=== PATIENT | male | born 1985 | race Caucasian/White ===

== ENCOUNTER 2017-01-05 12:53 | Emergency (ER) | payer MEDICAID, OTHER ==
[~2017-01-05] VITALS: Ht 177.8 cm; Wt 93.0 kg
[~2017-01-05 12:53] MED LIST: IBUP800T25 PO; NO CURRENT MEDS
[2017-01-05 12:58] VITALS: Ht 177.8 cm; Wt 93.0 kg
[2017-01-05] MEDS ORDERED: ONDANSETRON (ODT) 4 MG TAB ODT STA (13:25)
[2017-01-05] MEDS ORDERED: DIPHTH/TET/ACEL PERTUSS (ADULT) 0.5 ML VIAL IM ONE (13:30)
[2017-01-05] MEDS ORDERED: HYDROCODONE/APAP (10/325) TAB PO ONE (13:30)
--- NOTE | 2017-01-05 13:46 | ERD ---
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 He was at work and he was using a spinner concrete pipe and pushed on the pedal and accidentally caused a laceration. The nail has been removed as well as the overlying skin. He states that he has localized pain, achy, severe. Denies weakness. Denies paresthesias ROS All systems reviewed and are negative except as per history of present illness. Medications Home Meds Active Scripts Hydrocodone/Acetaminophen ([place]aw 5-325 Tablet) 1 Each Tablet, 1 TAB PO Q6H Y for PAIN, #20 TAB Prov:GRANT ORDOÑEZ PA-C 01/05/17 Sulfamethoxazole/Trimethoprim* (Bactrim Ds* Tablet) 1 Each Tablet, 1 TAB PO BID , #14 TAB Prov:GRANT ORDOÑEZ PA-C 01/05/17 Cephalexin* (Keflex*) 500 Mg Capsule, 500 MG PO QID for 7 Days, CAP Prov:GRANT ORDOÑEZ PA-C 01/05/17 Ibuprofen* (Motrin*) 800 Mg Tab, 800 MG PO Q6, #30 TAB take with food Prov:MARY JAIME PA-C 02/27/16 Reported Medications [No Current Meds] No Conflict Check 08/20/09 Allergies Allergies: Coded Allergies: No Known Allergy (Verified Allergy, Mild, 08/20/09) PMhx/Soc History of Surgery: No Anesthesia Reaction: No Hx Neurological Disorder: No Hx Respiratory Disorders: No Hx Cardiac Disorders: No Hx Psychiatric Problems: No Hx Miscellaneous Medical Probl: No (DENIES MEDICAL AND SURGICAL HX.) Hx Alcohol Use: No Hx Substance Use: No Hx Tobacco Use: No Physical Exam Vitals Vital Signs Date Time Temp Pulse Resp B/P Pulse Ox O2 Delivery O2 Flow Rate FiO2 01/05/17 12:58 97.8 90 18 143/79 99 Physical Exam General: Well-developed, well-nourished. The patient appears in no acute distress. HEENT: Head is normocephalic, atraumatic. No scleral icterus. Neck: Supple. Nontender. Lungs: Clear to auscultation. Normal air movement. Heart: Regular rate and rhythm. S1 and S2 are normal. No murmurs, gallops, or rubs. Abdomen: Nondistended. Extremities: Left second index finger has a laceration that extends to the fingertip, it is through and through, the nailbed is missing there is a circular area of skin that is missing at the top of the digit approximately 1.5 cm, laceration extends approximately 4 cm. He is able to flex and extend at the DIP, PIP and MCP joint. Capillary refill less than 2 seconds. Mild bleeding, nonpulsatile Neurologic: Alert and oriented 3. No focal deficits. Normal speech and gait. Skin: Normal turgor. No rash or lesions. Results 24 hrs Current Medications Medications (Trade) Dose Ordered Sig/Brianna Route PRN Reason Start Time Stop Time Status Last Admin Dose Admin Diphtheria/ Tetanus/Acell Pertussis (Adacel) 0.5 ml ONCE ONCE IM 01/05/17 13:30 01/05/17 13:31 DC 01/05/17 14:07 Acetaminophen/ Hydrocodone Bitart ([place] (10/325)) 1 tab ONCE ONCE PO 01/05/17 13:30 01/05/17 13:31 DC 01/05/17 14:06 Ondansetron HCl (Zofran Odt) 4 mg ONCE STAT ODT 01/05/17 13:25 01/05/17 13:27 DC 01/05/17 14:06 Cefazolin Sodium (Ancef) 1 gm ONCE ONCE IM 01/05/17 14:00 01/05/17 14:01 DC 01/05/17 14:07 Lidocaine (Xylocaine 1% (Mdv) 20 ml) 20 ml ONCE ONCE SC 01/05/17 14:00 01/05/17 14:01 DC 01/05/17 14:07 DIAGNOSTIC IMAGING REPORT Patient: ARLETTE CHAUHAN : 1985 Age: 31 Sex: M MR #: [id number] DOS: 01/05/17 1325 Ordering MD: GRANT ORDOÑEZ PA-C Location: [facility] Room/Bed: PROCEDURE: XR Left index finger CLINICAL INDICATION: Laceration TECHNIQUE: AP, oblique, and lateral radiographs were submitted. COMPARISON: None FINDINGS: Osseous structures: There is amputation of the distal aspect of the distal phalanx of the left index finger with a couple tiny fragment seen in the distal soft tissues. Joint spaces: are well maintained, with no significant spurring, erosion or joint effusion evident. Soft tissues: There is a deep laceration involving the distal index finger. IMPRESSION: 1. Amputation at the distal aspect of the distal phalanx of the left index finger with a couple punctate osseous fragment seen within the distal soft tissues. 2. Deep laceration involving the distal soft tissues of the left index finger. Physician Mitchel Date Time Electronically viewed and signed by Everton Gautam Physician on 01/05/2017 14:00 RH/ CC: GRANT ORDOÑEZ PA-C Procedures/MDM ED course: He was given P[place] P[place], and Zofran for pain. He was given Ancef 1 g IM. Laceration Repair by me: Patient was verbally consented Anesthesia: 1% lidocaine locally, digital block was Location: Left index finger Tendon/Joint/Nerves: No injury Foreign body: None detected after copious irrigation and exploration Technique: Simple Interrupted Sutures x 13 using 4- 0 ethilon Complexity: No subcutaneous sutures/mucosal repair/ edge excision Post Closure Length: 5 cm Patient's bleeding was easily controlled in the department and there is no indication of anemia. No evidence of compartment syndrome, neurologic injury, vascular injury, open joint, tendon laceration, or foreign body. Patient is appropriate for outpatient follow up. 48 hour wound check. Scar minimization instructions given. Medical decision makin yo male comes in with a laceration with distal fingertip amputation. Patient presents with a crush injury resulting in an open fracture of his left index digit. Patient does have full range of motion to all aspects of her left index finger without evidence of a tendon laceration. Sutures were placed to close the wound, followed by Xeroform and a metal finger splint. He will be covered with antibiotics and has been advised that he needs to follow with orthopedist in the next day or 2. The case was reviewed and discussed with Dr. Wyman who agrees with the plan of care including labs, treatment, and advanced imaging as appropriate. Departure Diagnosis: Primary Impression: Crushing injury of finger, left Additional Impressions: Laceration Open fracture of finger Condition: Good GRANT ORDOÑEZ PA-C Jan 05, 2017 13:45
[2017-01-05] MEDS ORDERED: LIDOCAINE 1% (MDV) 20 ML INJ SC ONE (14:00)
[2017-01-05] MEDS ORDERED: CEFAZOLIN 1 GM INJ IM ONE (14:00)
--- NOTE | 2017-01-05 14:00 | RADRPT ---
PROCEDURE: XR Left index finger CLINICAL INDICATION: Laceration TECHNIQUE: AP, oblique, and lateral radiographs were submitted. COMPARISON: None FINDINGS: Osseous structures: There is amputation of the distal aspect of the distal phalanx of the left index finger with a couple tiny fragment seen in the distal soft tissues. Joint spaces: are well maintained, with no significant spurring, erosion or joint effusion evident. Soft tissues: There is a deep laceration involving the distal index finger. IMPRESSION: 1. Amputation at the distal aspect of the distal phalanx of the left index finger with a couple pun ctate osseous fragment seen within the distal soft tissues. 2. Deep laceration involving the distal soft tissues of the left index finger. Physician Mitchel Date Time Electronically viewed and signed by Everton Gautam Physician on 01/05/2017 14:00 /
[2017-01-05] MEDS ORDERED: CEPH-443 PO (15:12)
[2017-01-05] MEDS ORDERED: SULF1TAB31 PO (15:12)
[2017-01-05] MEDS ORDERED: HYDR-906 PO (15:12)
== END 2017-01-05 15:26 | disposition home or self-care (01) ==
LOC: FTE 12:53
DX: S67.191A Crushing injury of left index finger, initial encounter (principal); S62.631B Displaced fracture of distal phalanx of left index finger, initial encounter for open fracture; W26.8XXA Contact with other sharp object(s), not elsewhere classified, initial encounter; Y92.89 Other specified places as the place of occurrence of the external cause; Z23 Encounter for immunization
CPT/HCPCS: 12002; 29130; 73140; 90471; 90715; 96372; 99284; J0690

== ENCOUNTER 2018-01-22 18:43 | Emergency (ER) | END 2018-01-22 22:12 | disposition home or self-care (01) ==